=== PATIENT | female | born 1970 | race American Indian/Alaskan Native ===

== ENCOUNTER 2017-06-18 23:21 | Emergency (ER) | payer MEDICARE ==
--- NOTE | 2017-06-19 02:38 | Emergency Department Report ---
Suture/Staple Removal - [facility] Chief Complaint: Laceration/Recheck/Suture Stated Complaint: WOUND CHECK Time Seen by Provider: 06/19/17 02:33 When Sutures or Nell Placed: >14 Days Ago (pt presenting to ED requesting suture removal. Pt states 20 days prior, she fell on a wooden plank and sustained a deep wound on her right knee. She states she was to remove the sutures one week prior however she forget secondary to her partner being ill. Pt states the sutures have been in for approx 20 days. Patient also complaining of right shoulder pain that occured on the same day as her knee injury. She states she's been able to move the shoulder however since causing intermittent pain and she wanted evaluated in the ED today. Patient has no other complaints.) ED Review of Systems ROS: Stated complaint: WOUND CHECK Other details as noted in HPI Constitutional: denies: chills, fever Eyes: denies: eye pain, eye discharge, vision change ENT: denies: ear pain, throat pain Respiratory: denies: cough, shortness of breath, wheezing Cardiovascular: denies: chest pain, palpitations Endocrine: no symptoms reported Gastrointestinal: denies: abdominal pain, nausea, diarrhea Genitourinary: denies: urgency, dysuria, discharge Musculoskeletal: other (right shoulder pain). denies: back pain, joint swelling , arthralgia Skin: other (sutures). denies: rash, lesions Neurological: denies: headache, weakness, paresthesias Psychiatric: denies: anxiety, depression Hematological/Lymphatic: denies: easy bleeding, easy bruising ED Past Medical Hx - Surgical History Past Surgical History?: Yes Additional Surgical History: Right knee injury from a fall two weeks ago - Social History Smoking Status: Unknown if ever smoked - Medications Home Medications: Home Medications Medication Instructions Recorded Confirmed Last Taken Type Ibuprofen [Motrin 800 MG tab] 800 mg PO Q8HR PRN #20 tablet 06/19/17 Unknown Rx Suture Removal Exam - Exam General: Vital signs noted. No distress. Alert and acting appropriately. Patient has full range of motion bilateral shoulders, elbow, wrists, all digits and hands, hips, knees, ankles. Concerning right shoulder, there is full ROM without deformity. Wound: No Pathologic Erythema, No Tenderness, No Drainage, No Pus, No Wound Dehiscence Other Systems: All other systems reviewed and are unremarkable. pt has 11 sutures in right knee. Sutures are clean, dry, intact. Pt has full ROM in BL knees ED Course Vital Signs 06/18/17 06/19/17 23:39 00:37 Temperature 98.5 F 98.5 F Pulse Rate 67 67 Respiratory 18 18 Rate Blood Pressure 133/80 133/80 O2 Sat by Pulse 100 100 Oximetry - Reevaluation(s) Reevaluation #1: 06/19/17 03:37 pt tolerated suture removal well - Laceration /Wound Repair Right Knee Number of Sutures: 11 Progress: 11 sutures removed by myself, no complications ED Recheck MDM - Core Measures AMI Core Measures Followed: Yes - Differential Diagnosis Suture/Staple Removal - Medical Decision Making 47 yo female presenting to ED for suture removal and right shoulder pain. Patient tolerated suture removal well without complications. Concerning right shoulder pain is likely sprain. Right Shoulder x-ray-shows shoulder prosthesis that intact without acute findings. Pt agrees she is stable to dc home with PCp and orthopedic follow up. She verbalzied understanding of return precautions Critical Care Time: No Critical care attestation.: If time is entered above; I have spent that time in minutes in the direct care of this critically ill patient, excluding procedure time. ED Disposition Clinical Impression: Visit for suture removal, Sprain of right shoulder Disposition: DC-01 TO HOME OR SELFCARE Is pt being admited?: No Does the pt Need Aspirin: No Condition: Good Instructions: Shoulder Sprain (ED), Suture Removal (ED) Prescriptions: Ibuprofen [Motrin 800 MG tab] 800 mg PO Q8HR PRN #20 tablet PRN Reason: Pain , Severe (7-10) Referrals: PRIMARY CARE, [Primary Care Provider] - 3-5 Days MERRITT NG MD [Referring] - 3-5 Days DORIAN KEMP MD [Staff Physician] - 3-5 Days Forms: Work/School Release Form(ED)
[2017-06-19] MEDS ORDERED: MOTRIN PO ONE (03:44)
[2017-06-19 05:36] VITALS: BP 113/68
--- NOTE | 2017-06-19 09:09 | XRay Report ---
Right shoulder 3 views: History: Pain. Findings: Deformity distal right clavicle probably related to previous surgery. Total arthroplasty right shoulder. Head, neck and stem of prosthesis appears stable. Satisfactory alignment with glenoid. No acute fracture. Impression: Stable right shoulder arthroplasty.
== END 2017-06-19 04:32 | disposition home or self-care (01) ==
LOC: ED 23:21
DX: S81.011D Laceration without foreign body, right knee, subsequent encounter (principal); S43.401A Unspecified sprain of right shoulder joint, initial encounter; W19.XXXA Unspecified fall, initial encounter; Y93.9 Activity, unspecified; Y99.9 Unspecified external cause status; Y92.89 Other specified places as the place of occurrence of the external cause
CPT/HCPCS: 99283